=== PATIENT | male | born 1985 | race Caucasian/White ===

== ENCOUNTER → 2021-01-15 16:03 | Outpatient (CLI) | payer OTHER, SELFPAY | PROVIDERS: Visit Provider Internal Medicine Gastroenterology | DX: Z01.812 Encounter for preprocedural laboratory examination (principal); Z20.822 Contact with and (suspected) exposure to COVID-19; Z13.810 Encounter for screening for upper gastrointestinal disorder | CPT/HCPCS: U0003 ==

== ENCOUNTER 2021-01-17 10:24 | Day surgery (SDC) | payer OTHER, SELFPAY ==
[2021-01-09 10:38] VITALS: BMI 29.0
[2021-01-17] VITALS (7 sets, daily range): BP systolic 114–136; BP diastolic 69–95; PULSE 74–92; RESP 16–20; TEMP 36.2–36.7; O2SAT 95–98
--- NOTE | 2021-01-17 11:13 | HMH.ANESCL ---
[facility] Anesthesia Checklist - Structural Data Admitted From: Home Planned Operative Procedure/s: egd Consent for Planned Operative Procedure(s) Verified: Yes - Airway Assessment C-Spine Mobility Assessed: Yes TMJ Mobility Assessed: Yes Dentition: Good Dentition - Neurological Assessment Level of Consciousness: Awake, Alert, Appropriate - Anesthesia Plan Anesthesia Risk discussed: Yes Anesthesia Plan: Verified ASA Class: I Anesthesia Type: MAC [facility] History I have reviewed the patient's past medical history: Yes Medical History: Denies:: Cancer, Diabetes Mellitus Type 1, Diabetes Mellitus Type 2, Internal Pacemaker, MRSA, Seizures *Have you ever received a pneumonia vaccine?: Yes *Have you received a flu vaccine this season?: Yes Anesthesia experience/problems:: none Other Surgeries: No: Pacemaker Amputation: No Fractures: No - *Social History Last grade of school completed: High school graduate Smoking Status: Never smoker Alcohol Intake: current Alcohol Intake Frequency:: 3 or more drinks per day Substance Use Type: denies use *Occupational Status:: employed *Travel in the last 8 weeks: None Family Hx:: No significant family history
--- NOTE | 2021-01-17 11:56 | HMH.PROC ---
[facility] Procedure Note Procedure Note:: Upper Endoscopy Procedure Report: Esophagogastroduodenoscopy with cold biopsies Endoscopost: Soham Stahl II, MD Referring Physician: Brsyon Lindsey D.O. Date of Procedure: January 17, 2021 Equipment: Olympus GIF 190 standard upper endoscope Sedation: MAC sedation Indications: Mr. Ibrahim is a 35-year-old gentleman with dyspepsia. He does get epigastric abdominal discomfort and occasionally pain. He has more significant reflux postprandially. He reports moderate belching and pyrosis. He does report bloating and fullness. He states that his symptoms are worsened when he is constipated. He has occasional nausea and regurgitation. He reports no vomiting. He does report incomplete bowel evacuation. He reports no dysphagia or globus. This is his first upper endoscopy. The patient has not responded well to dietary measures and PPI therapy. Procedure: Prior to the procedure, a history and physical exam was performed, and patient's medications and allergies were reviewed. The risks, benefits and alternatives of the sedation and procedure were discussed with the patient. All questions were answered and informed consent was obtained. The patient was brought to the procedure room. Patient identification and proposed procedure were verified by the physician and the nurse. The patient was placed in a left lateral decubitus position and the scope was passed under direct vision. Throughout the procedure, the patient's blood pressure, pulse, and oxygen saturations were monitored continuously. The upper GI endoscopy was accomplished without difficulty. The patient tolerated the procedure well. Findings: The scope was passed directly into the upper esophagus and advanced to the third portion of the duodenum. The post bulbar duodenum and duodenal bulb were normal with normal mucosa and conniventes. The scope was withdrawn through a normal duodenal bulb and pylorus into the stomach. There was bile reflux with linear reactive gastropathy of the antrum. The remainder of the body and fundus of the stomach were grossly normal. Upon retroflexion there was a very small sliding 1 to 2 cm hiatal hernia. 2 biopsies were taken in the antrum and along the lesser curvature for histology to rule out gastritis and/or H pylori. The scope was then withdrawn into the esophagus. There was one tongue of salmon-colored mucosa that was biopsied to rule out Gamez's esophagus. There was evidence of mild grade A reflux esophagitis. There were some tertiary contractions and evidence of mild esophageal dysmotility. The remainder of the esophageal mucosa was normal. Impression: 1. Grade A reflux esophagitis with possible short segment Gamez's esophagus and very small sliding hiatal hernia 2. Bile reflux with linear reactive gastropathy Plan: I will follow-up the biopsies. The patient does have functional dyspepsia and functional GERD. This is related to gas pressure gradient secondary to his obstipation. We will discussed dietary measures, fiber bowel regimen, promotility therapy with or without PPI therapy. I would also consider [id number] [id number] when necessary.
== END 2021-01-17 13:06 | disposition home or self-care (01) ==
PROVIDERS: PCP Internal Medicine; Visit Provider Internal Medicine Gastroenterology
PROC: 0DJ08ZZ Inspection of Upper Intestinal Tract, Via Natural or Artificial Opening Endoscopic (ICD-10-PCS; CPT 43235; principal; 2021-01-17 12:00)
DX: K20.80 Other esophagitis without bleeding (principal); K44.9 Diaphragmatic hernia without obstruction or gangrene; K31.9 Disease of stomach and duodenum, unspecified
CPT/HCPCS: 43239